=== PATIENT | female | born 1965 | race African-American/Black ===

== ENCOUNTER 2017-05-02 22:54 | Inpatient (IN) | payer OTHER ==
[~2017-05-02] VITALS: Ht 162.6 cm; Wt 114.8 kg
[~2017-05-02 22:54] MED LIST: ACET1TAB14 PO; ALBUTEROL; AMIO200T39 PO; APAP/CODEINE; BETA45CR15 TP; CARI350T PO; CARV12.545 PO; DIAZ10TA PO; DIGO250T81 PO; DIPH25CA83 PO; FLUT1DIS IH; FURO40TA5 PO; GABA-531 PO; LEVO25TA7 PO; LISI2.5T47 PO
[2017-05-02] MEDS ORDERED: ONDANSETRON HCL 4MG/2ML VIAL IV STA (23:53)
[2017-05-02] MEDS ORDERED: ASPIRIN 81MG TABLET PO STA (23:53)
[2017-05-02] MEDS ORDERED: MORPHINE SULFATE 4 MG/ML CPJ (NOT FOR IM USE) IV STA (23:53)
[2017-05-02] MEDS ORDERED: METHYLPREDNISOLONE SOD SUCC 125 MG/2 ML VIAL IV STA (23:53)
[2017-05-02] MEDS ORDERED: ALBUTEROL (0.083%) 2.5MG/3ML NEB HHN STA (23:53)
[2017-05-02] MEDS ORDERED: IPRATROPIUM BROMIDE (0.02%) 0.5MG/2.5ML NEB HHN STA (23:53)
[2017-05-03] VITALS (9 sets, daily range): BP systolic 92–182; BP diastolic 58–99
[2017-05-03] MEDS ORDERED: LEVOFLOXACIN 750MG PREMIX 150 ML IV ONE
[2017-05-03] MEDS ORDERED: ALBUTEROL (0.5%) 2.5MG/0.5ML NEB HHN ONE (00:22)
[2017-05-03 00:35] LABS: HEMATOCRIT. 33.9 % (36.0-48.0); HEMOGLOBIN. 11.1 g/dL (12.0-16.0); MEAN CORPUSCULAR HEMOGLOBIN 31.7 pg (28.0-32.0); MEAN CORPUSCULAR VOLUME 96.6 fL (81.0-99.0); MEAN PLATELET VOLUME 9.2 fl (7.4-10.4); PLATELET 189 x1000/uL (130-400); RED BLOOD CELL COUNT 3.51 mill/uL (4.2-5.4); RED CELL DISTRIBUTION WIDTH 14.8 % (11.6-14.6)
[2017-05-03 00:45] LABS: PARTIAL THROMBOPLASTIN TIME 20.2 sec (24.0-34.0); PROTHROMBIN TIME 10.5 sec
[2017-05-03 00:59] LABS: PLATELET ESTIMATE NORMAL
[2017-05-03 01:00] LABS: CARBON DIOXIDE 33 mEq/L (21-32); CHLORIDE 92 mEq/L (98-107)
[2017-05-03 01:13] LABS: CLARITY URINE CLEAR (CLEAR); COLOR URINE YELLOW (YELLOW); GLUCOSE URINE 3+ (NEGATIVE); KETONES URINE NEGATIVE (NEGATIVE); LEUKOCYTE ESTERASE URINE NEGATIVE (NEGATIVE); NITRITE URINE NEGATIVE (NEGATIVE); OCCULT BLOOD URINE NEGATIVE (NEGATIVE); PH URINE 5.5 (4.5-8.0); PROTEIN URINE NEGATIVE (NEGATIVE); SPECIFIC GRAVITY URINE 1.031 (1.005-1.030); UROBILINOGEN URINE 0.2 E.U./dL (0.2-1.0)
[2017-05-03] MEDS ORDERED: INSULIN REGULAR (HUMULIN R) UD 100 UNITS/ML SYR SUBCUT ONE ×2 (01:30→04:00)
[2017-05-03] MEDS ORDERED: FUROSEMIDE 40MG/4ML VIAL IV STA (01:49)
[2017-05-03] MEDS ORDERED: NITROGLYCERIN OINT 1GM/INCH UDPKT TD STA (01:49)
[2017-05-03] MEDS ORDERED: INSULIN REGULAR (HUMULIN R) 300UNITS/3ML SUBCUT NR (02:26)
[2017-05-03] MEDS ORDERED: MORPHINE SULFATE 4 MG/ML CPJ (NOT FOR IM USE) IV ONE (03:45)
[2017-05-03] MEDS ORDERED: INSULIN REGULAR (HUMULIN R) 300UNITS/3ML SUBCUT ONE (05:00)
[2017-05-03] MEDS ORDERED: ENOXAPARIN 120MG/0.8ML SYR SUBCUT ONE (05:30)
[2017-05-03] MEDS ORDERED: INSULIN LISPRO (HIGH DOSE) 100 UNITS/ML SUBCUT NR (09:06)
[2017-05-03] MEDS ORDERED: DIPHENHYDRAMINE 50MG/ML VIAL IV PRN (10:15)
[2017-05-03] MEDS ORDERED: ONDANSETRON HCL 4MG/2ML VIAL IV PRN (10:15)
[2017-05-03] MEDS ORDERED: CLONIDINE 0.1MG TABLET PO PRN (10:15)
[2017-05-03] MEDS ORDERED: ACETAMINOPHEN 325MG TABLET PO PRN (10:15)
[2017-05-03] MEDS: LISINOPRIL 2.5MG TABLET PO SCH (11:00)
[2017-05-03] MEDS ORDERED: FUROSEMIDE 20MG TABLET PO SCH (11:00)
[2017-05-03] MEDS ORDERED: CARVEDILOL 12.5MG TABLET PO SCH (11:00)
[2017-05-03] MEDS: HYDROCODONE/ACETAMINOPHEN 5/325MG TABLET PO PRN ×2 (12:12→20:36)
[2017-05-03] MEDS ORDERED: MORPHINE SULFATE 2 MG/ML CPJ (NOT FOR IM USE) IV PRN (13:15)
[2017-05-03] MEDS: IPRATROPIUM/ALBUTEROL 0.5-3(2.5)MG/3ML NEB INH PRN (13:27)
[2017-05-03] MEDS: METHYLPREDNISOLONE SOD SUCC 40 MG/ML VIAL IV SCH ×2 (14:50→21:27)
[2017-05-03] MEDS ORDERED: DEXTROSE 50% WATER 50ML SYRINGE IV PRN (15:30)
[2017-05-03] MEDS: MORPHINE SULFATE 2 MG/ML CPJ (NOT FOR IM USE) IV PRN ×3 (16:07→21:28)
[2017-05-03] MEDS: BLOOD SUGAR DIAGNOSTIC STRIP TEST SCH ×2 (16:59→20:47)
[2017-05-03] MEDS: FUROSEMIDE 40MG TABLET PO SCH (17:16)
[2017-05-03] MEDS: INSULIN LISPRO 100 UNITS/ML SUBCUT SCH ×2 (17:17→21:30)
[2017-05-03] MEDS: DIGOXIN 250MCG TABLET PO SCH (17:43)
[2017-05-03] MEDS: CARVEDILOL 6.25 MG TABLET PO SCH (20:35)
[2017-05-03] MEDS ORDERED: ENOXAPARIN 120MG/0.8ML SYR SUBCUT SCH (21:00)
[2017-05-04] VITALS (15 sets, daily range): BP systolic 89–146; BP diastolic 44–90
[2017-05-04] MEDS: MORPHINE SULFATE 2 MG/ML CPJ (NOT FOR IM USE) IV PRN ×3 (00:16→08:47)
[2017-05-04] MEDS: HYDROCODONE/ACETAMINOPHEN 5/325MG TABLET PO PRN ×3 (01:29→21:04)
[2017-05-04] MEDS: METHYLPREDNISOLONE SOD SUCC 40 MG/ML VIAL IV SCH (05:06)
[2017-05-04 06:11] LABS: HEMATOCRIT. 32.2 % (36.0-48.0); HEMOGLOBIN. 10.6 g/dL (12.0-16.0); MEAN CORPUSCULAR HEMOGLOBIN 31.8 pg (28.0-32.0); MEAN CORPUSCULAR VOLUME 96.6 fL (81.0-99.0); MEAN PLATELET VOLUME 9.4 fl (7.4-10.4); PLATELET 192 x1000/uL (130-400); RED BLOOD CELL COUNT 3.33 mill/uL (4.2-5.4); RED CELL DISTRIBUTION WIDTH 14.7 % (11.6-14.6)
[2017-05-04 07:19] LABS: CARBON DIOXIDE 38 mEq/L (21-32); CHLORIDE 89 mEq/L (98-107); HDL CHOLESTEROL 51 mg/dL (40-59); LDL CHOLESTEROL 41 mg/dL (5-100)
[2017-05-04] MEDS: BLOOD SUGAR DIAGNOSTIC STRIP TEST SCH ×4 (08:30→20:40)
[2017-05-04 08:35] LABS: TROPONIN I 0.98 ng/mL (0.00-0.04)
[2017-05-04] MEDS: FUROSEMIDE 40MG TABLET PO SCH ×2 (08:48→16:45)
[2017-05-04] MEDS: CARVEDILOL 6.25 MG TABLET PO SCH ×2 (08:48→20:40)
[2017-05-04] MEDS: LISINOPRIL 2.5MG TABLET PO SCH (09:00)
[2017-05-04] MEDS: INSULIN LISPRO 100 UNITS/ML SUBCUT SCH ×6 (09:03→21:01)
[2017-05-04] MEDS ORDERED: INSULIN LISPRO 100 UNITS/ML SUBCUT NR (11:15)
[2017-05-04 12:13] LABS: PLATELET ESTIMATE NORMAL
[2017-05-04] MEDS ORDERED: AMLODIPINE 5MG TABLET PO NR (12:30)
[2017-05-04] MEDS ORDERED: MORPHINE SULFATE 2 MG/ML CPJ (NOT FOR IM USE) IV PRN ×3 (13:00→15:00)
[2017-05-04] MEDS: GUAIFENESIN-DM 200MG-20MG/10ML UDC PO PRN ×2 (13:10→16:50)
[2017-05-04 15:31] LABS: *AMPHETAMINES SCREEN URINE NEGATIVE (NEGATIVE); *BARBITURATES SCREEN URINE NEGATIVE (NEGATIVE); *BENZODIAZEPINES SCREEN URINE PRESUMTIVE POSITIVE (NEGATIVE); *COCAINE SCREEN URINE NEGATIVE (NEGATIVE); CANNABINOID URINE SCREEN NEGATIVE (NEGATIVE); METHADONE URINE SCREEN NEGATIVE (NEGATIVE); OPIATES URINE SCREEN PRESUMTIVE POSITIVE (NEGATIVE); PHENCYCLIDINE URINE SCREEN NEGATIVE (NEGATIVE)
[2017-05-04] MEDS: PREDNISONE 20MG TABLET PO SCH (16:45)
[2017-05-04] MEDS: DIGOXIN 250MCG TABLET PO SCH (16:45)
[2017-05-04] MEDS: IPRATROPIUM/ALBUTEROL 0.5-3(2.5)MG/3ML NEB INH PRN ×3 (17:00→23:58)
[2017-05-04] MEDS: HYDROCODONE/ACETAMINOPHEN 10/325MG TABLET PO PRN ×2 (18:10→23:53)
[2017-05-05] VITALS (10 sets, daily range): BP systolic 95–137; BP diastolic 54–86
[2017-05-05] MEDS: GUAIFENESIN-DM 200MG-20MG/10ML UDC PO PRN ×2 (00:50→12:35)
[2017-05-05] MEDS: IPRATROPIUM/ALBUTEROL 0.5-3(2.5)MG/3ML NEB INH PRN ×4 (04:02→17:05)
[2017-05-05 06:54] LABS: BASOPHILS % 0.2 % (0.0-2.0); HEMOGLOBIN. 11.4 g/dL (12.0-16.0); LYMPHOCYTES % 7.6 % (20.0-50.0); MEAN CORPUSCULAR VOLUME 95.2 fL (81.0-99.0); MEAN PLATELET VOLUME 9.3 fl (7.4-10.4); MONOCYTES % 9.9 % (2.0-8.0); NEUTROPHILS % 82.3 % (40.0-76.0); PLATELET 188 x1000/uL (130-400); RED BLOOD CELL COUNT 3.57 mill/uL (4.2-5.4); RED CELL DISTRIBUTION WIDTH 14.7 % (11.6-14.6)
[2017-05-05 07:25] LABS: CHLORIDE 88 mEq/L (98-107)
[2017-05-05] MEDS: INSULIN LISPRO 100 UNITS/ML SUBCUT SCH ×4 (07:30→12:38)
[2017-05-05 08:02] LABS: CARBON DIOXIDE 42 mEq/L (21-32)
[2017-05-05] MEDS: FUROSEMIDE 40MG TABLET PO SCH (08:23)
[2017-05-05] MEDS: PREDNISONE 20MG TABLET PO SCH (08:25)
[2017-05-05] MEDS: LISINOPRIL 2.5MG TABLET PO SCH (08:25)
[2017-05-05] MEDS: CARVEDILOL 6.25 MG TABLET PO SCH (08:25)
[2017-05-05] MEDS: BLOOD SUGAR DIAGNOSTIC STRIP TEST SCH ×2 (08:26→12:38)
[2017-05-05 09:00] LABS: BG BASE EXCESS 14.4 mmol/L (-2.0-2.0); BG CARBOXYHEMOGLOBIN 1.5 % (0.5-1.5); BG DEOXYHEMOGLOBIN 6.6 % (0.0-5.0); BG FRACTION INSPIRED OXYGEN 28; BG HCO3 ACT 40.4 mmol/L (22.0-26.0); BG METHEMOGLOBIN 0.3 % (0.0-1.5); BG OXYGEN SATURATION 93.3 % (92.0-98.5); BG OXYHEMOGLOBIN 91.6 % (94.0-97.0); BG PCO2 56.6 mmHg (35.0-45.0); BG PH 7.471 (7.350-7.450); BG SAMPLE SITE RIGHT RADIAL; BG TOTAL HEMOGLOBIN 12.2 g/dL (12.0-18.0); BG VENT MODE NASAL CANNULA
[2017-05-05] MEDS ORDERED: AMLODIPINE 5MG TABLET PO SCH (09:00)
[2017-05-05] MEDS: HYDROCODONE/ACETAMINOPHEN 10/325MG TABLET PO PRN (10:47)
[2017-05-05] MEDS: HYDROCODONE/ACETAMINOPHEN 5/325MG TABLET PO PRN (15:07)
== END 2017-05-05 17:35 | disposition home or self-care (01) | DRG 720 ==
LOC: ER 22:54 → EDBEDREQSVC 05-03 03:36 → 5EST 05-03 06:21 → EDBEDREQ 05-03 06:34 → ENRESERV 05-03 08:16
PROVIDERS: ADMIT Internal Medicine; ATTEND Internal Medicine
DX: A41.9 Sepsis, unspecified organism (principal); J96.00 Acute respiratory failure, unspecified whether with hypoxia or hypercapnia; I21.4 Non-ST elevation (NSTEMI) myocardial infarction; G93.40 Encephalopathy, unspecified; I50.23 Acute on chronic systolic (congestive) heart failure; J18.9 Pneumonia, unspecified organism; I42.0 Dilated cardiomyopathy; R65.20 Severe sepsis without septic shock; I11.0 Hypertensive heart disease with heart failure; F11.20 Opioid dependence, uncomplicated; J44.0 Chronic obstructive pulmonary disease with (acute) lower respiratory infection; I27.2 Other secondary pulmonary hypertension; E11.65 Type 2 diabetes mellitus with hyperglycemia; E66.01 Morbid (severe) obesity due to excess calories; E78.00 Pure hypercholesterolemia, unspecified; E78.5 Hyperlipidemia, unspecified; F17.210 Nicotine dependence, cigarettes, uncomplicated; F41.9 Anxiety disorder, unspecified; I25.10 Atherosclerotic heart disease of native coronary artery without angina pectoris; I48.1 Persistent atrial fibrillation; I49.3 Ventricular premature depolarization; E05.90 Thyrotoxicosis, unspecified without thyrotoxic crisis or storm; E87.5 Hyperkalemia; N28.1 Cyst of kidney, acquired; Z68.41 Body mass index [BMI] 40.0-44.9, adult; Z76.5 Malingerer [conscious simulation]; Z79.899 Other long term (current) drug therapy; Z91.19 Patient's noncompliance with other medical treatment and regimen; Z95.810 Presence of automatic (implantable) cardiac defibrillator; Z99.81 Dependence on supplemental oxygen
CPT/HCPCS: 36415; 36600; 71010; 74176; 80048; 80053; 80061; 80162; 80305; 81001; 82375; 82805; 82962; 83605; 83690; 83880; 84484; 85025; 85610; 85730; 87040; 87086; 93005; 93306; 94640; 96365; 96366; 96372; 96375; 96376; 97162; 99291; J1650; J1815; J1940; J1956; J2270; J2405; J2920; J2930; J7512; J7611; J7620